=== PATIENT | female | born 1955 | race African-American/Black ===

== ENCOUNTER 2024-03-11 12:05 | Day surgery (SDC) | payer MEDICARE ==
[2024-03-11] MEDS ORDERED: BUPIVACAINE 0.5% VIAL IJ ONE (12:06)
[2024-03-11] MEDS ORDERED: Depo-Medrol 40 MG/ML IM ONE (12:06)
[2024-03-11] MEDS ORDERED: XYLOCAINE-MPF 1% 5ML SDV IJ ONE (12:06)
[2024-03-11] MEDS ORDERED: Lactated Ringers 1,000 ML IV ONE (13:42)
[2024-03-11] MEDS ORDERED: DEXMEDETOMIDINE 80 MCG/20ML-NS IV ONE (13:53)
[2024-03-11] MEDS ORDERED: Versed 2 MG/2 ML Injection ONE (13:53)
[2024-03-11] MEDS ORDERED: Xylocaine-Mpf 2% 5 Ml Vial ONE (14:08)
--- NOTE | 2024-03-11 16:24 | XRAY ---
Indication: Right shoulder and subacromial bursa injection. Intraoperative fluoroscopy provided for 25 seconds. 2 digital spot image submitted for interpretation demonstrates needle tip projecting over the right glenohumeral joint superiorly. Second needle tip subacromial. Small amount of contrast injected for both needle tip placement. Correlate with intraoperative findings/report.
--- NOTE | 2024-03-11 17:11 | XRAY ---
25 seconds of fluoroscopy was used in surgery for a right intra-articular shoulder and subacromial bursa injection.
== END 2024-03-11 14:02 | disposition home or self-care (01) ==
LOC: SDC-PAIN 12:05
PROVIDERS: ATTEND Psychiatry & Neurology Pain Medicine
DX: M19.011 Primary osteoarthritis, right shoulder (principal)
CPT/HCPCS: 20610; 73030; 77002; J1010; J2250; Q9966